=== PATIENT | male | born 1955 | race Caucasian/White ===

== ENCOUNTER 2022-10-27 06:57 | Day surgery (SDC) | payer MEDICARE, BC ==
[2022-10-27] MEDS: Lactated Ringers 1,000 ML IV SCH (07:11)
[2022-10-27] MEDS ORDERED: Propofol 200 MG/20 ML SDV ONE (08:04)
[2022-10-27] MEDS ORDERED: fentaNYL 100 MCG/2 ML SDV ONE (08:04)
== END 2022-10-27 10:18 | disposition home or self-care (01) ==
LOC: VM.SDS 06:57
PROVIDERS: ATTEND Family Medicine
DX: Z12.11 Encounter for screening for malignant neoplasm of colon (principal); D12.6 Benign neoplasm of colon, unspecified; K62.1 Rectal polyp; K57.30 Diverticulosis of large intestine without perforation or abscess without bleeding; I10 Essential (primary) hypertension; E78.5 Hyperlipidemia, unspecified; E11.9 Type 2 diabetes mellitus without complications; I48.91 Unspecified atrial fibrillation; G47.30 Sleep apnea, unspecified; E66.01 Morbid (severe) obesity due to excess calories; Z98.890 Other specified postprocedural states; Z79.899 Other long term (current) drug therapy; Z79.84 Long term (current) use of oral hypoglycemic drugs; Z79.82 Long term (current) use of aspirin; Z79.01 Long term (current) use of anticoagulants; Z87.891 Personal history of nicotine dependence; Z68.41 Body mass index [BMI] 40.0-44.9, adult
CPT/HCPCS: 00812; 82947; 88305; J2704; J3010; J7120